=== PATIENT | male | born 1990 | race Caucasian/White ===

== ENCOUNTER 2017-10-01 20:47 | Emergency (ER) | payer OTHER ==
--- NOTE | 2017-10-01 21:01 | ER Report ---
History and Physical Time Seen By MD: 21:01 HPI/[place] CHIEF COMPLAINT: chest pain HISTORY OF PRESENT ILLNESS: This is a 27 year old male. He has had sharp sudden shooting pains off and on for about a week now. Multiple times a day, lasts for a few seconds when it comes on. Seems to start lower anterior chest and extend upwards. No abdominal pain. Has some reflux at times, but does not seem to correlate. No shortness of breath. No nausea or vomiting. Has never had this happen previously. He is under a lot of stress recently. No fevers or chills or cough. Allergies: Coded Allergies: No Known Drug Allergies (Unverified , 10/01/17) Home Meds No Active Prescriptions or Reported Meds Reviewed Nurses Notes: Yes Constitutional Vital Sign - Last 24 Hours 10/01/17 10/01/17 10/01/17 10/01/17 20:55 20:59 21:00 21:02 Temp 98.6 Pulse 70 72 Resp 14 15 B/P (MAP) 131/87 (102) 131/87 124/88 (100) Pulse Ox 98 96 O2 Delivery Room Air 10/01/17 10/01/17 10/01/17 10/01/17 21:17 21:30 21:32 21:47 Pulse 67 68 55 Resp 15 14 B/P (MAP) 114/82 (93) Pulse Ox 92 10/01/17 10/01/17 10/01/17 10/01/17 21:52 22:52 23:00 23:07 Pulse 56 63 59 Resp 19 B/P (MAP) 103/73 (83) Pulse Ox 92 92 10/01/17 10/01/17 10/01/17 10/01/17 23:22 23:30 23:37 23:42 Pulse 51 51 53 B/P (MAP) 112/81 (91) Pulse Ox 92 92 92 10/01/17 10/02/17 10/02/17 10/02/17 23:57 00:00 00:12 00:27 Pulse 53 50 57 B/P (MAP) 109/71 (84) Pulse Ox 95 94 10/02/17 00:30 B/P (MAP) 116/62 (80) Physical Exam General Appearance: The patient is alert. No acute distress. Eyes: Pupils are equal, round. No pallor, injection or icterus. ENT: Mucous membranes are moist. Normal oral mucosa. Posterior oropharynx is normal. Neck: Supple and non tender. Respiratory: Lungs are clear to auscultation. Cardiovascular: Regular rate and rhythm. No murmurs, gallops or rubs. Normal capillary refill. Gastrointestinal: Abdomen is soft and non tender. Nondistended. Normal active bowel sounds. Neurological: Alert and oriented x3. No focal neurologic deficits Skin: Warm and dry. Musculoskeletal: Extremities are nontender. Full range of motion. DIFFERENTIAL DIAGNOSIS: After history and physical exam, differential diagnosis was considered for chest pain including but not limited to myocardial ischemia, pericarditis pulmonary embolus, chest wall pain, pleural inflammation and pulmonary infectious causes. Medical Decision Making Data Points Result Diagram: 10/01/17212410/01/172124 Laboratory Hematology Test 10/01/17 21:25 Red Blood Count 5.06 M/uL (4.00-5.60) Mean Corpuscular Volume 90.8 fL (80.0-96.0) Mean Corpuscular Hemoglobin 31.8 pg (26.0-33.0) Mean Corpuscular Hemoglobin Concent 35.0 g/dL (32.0-36.0) Red Cell Distribution Width 12.3 % (11.5-14.5) Mean Platelet Volume 8.5 fL (7.2-11.1) Neutrophils (%) (Auto) 67.9 % (39.4-72.5) Lymphocytes (%) (Auto) 23.1 % (17.6-49.6) Monocytes (%) (Auto) 6.8 % (4.1-12.4) Eosinophils (%) (Auto) 0.8 % (0.4-6.7) Basophils (%) (Auto) 1.4 % (0.3-1.4) Nucleated RBC Relative Count (auto) 0.1 /100WBC Neutrophils # (Auto) 4.1 K/uL (2.0-7.4) Lymphocytes # (Auto) 1.4 K/uL (1.3-3.6) Monocytes # (Auto) 0.4 K/uL (0.3-1.0) Eosinophils # (Auto) 0.0 K/uL (0.0-0.5) Basophils # (Auto) 0.1 K/uL (0.0-0.1) Nucleated RBC Absolute Count (auto) 0.01 K/uL D-Dimer Quantitative (PE/DVT) < 0.27 ug/ml (0-0.50) Sodium Level 141 mmol/L (137-145) Potassium Level 3.6 mmol/L (3.5-5.0) Chloride Level 102 mmol/L (98-107) Carbon Dioxide Level 27 mmol/L (22-30) Blood Urea Nitrogen 12 mg/dl (9-21) Creatinine 0.90 mg/dl (0.66-1.25) Glomerular Filtration Rate Calc > 60.0 Random Glucose 114 mg/dl (75-110) Calcium Level 9.2 mg/dl (8.4-10.2) Total Bilirubin 0.4 mg/dl (0.2-1.3) Aspartate Amino Transf (AST/SGOT) 16 U/L (0-35) Alanine Aminotransferase (ALT/SGPT) 19 U/L (0-56) Alkaline Phosphatase 87 U/L (0-126) Troponin I < 0.012 ng/ml Total Protein 6.9 gm/dl (6.3-8.2) Albumin 4.0 g/dl (3.5-5.0) Chemistry Test 10/01/17 21:25 White Blood Count 6.1 k/uL (4.5-11.0) Red Blood Count 5.06 M/uL (4.00-5.60) Hemoglobin 16.1 g/dL (14.0-18.0) Hematocrit 45.9 % (42.0-52.0) Mean Corpuscular Volume 90.8 fL (80.0-96.0) Mean Corpuscular Hemoglobin 31.8 pg (26.0-33.0) Mean Corpuscular Hemoglobin Concent 35.0 g/dL (32.0-36.0) Red Cell Distribution Width 12.3 % (11.5-14.5) Platelet Count 216 K/uL (150-450) Mean Platelet Volume 8.5 fL (7.2-11.1) Neutrophils (%) (Auto) 67.9 % (39.4-72.5) Lymphocytes (%) (Auto) 23.1 % (17.6-49.6) Monocytes (%) (Auto) 6.8 % (4.1-12.4) Eosinophils (%) (Auto) 0.8 % (0.4-6.7) Basophils (%) (Auto) 1.4 % (0.3-1.4) Nucleated RBC Relative Count (auto) 0.1 /100WBC Neutrophils # (Auto) 4.1 K/uL (2.0-7.4) Lymphocytes # (Auto) 1.4 K/uL (1.3-3.6) Monocytes # (Auto) 0.4 K/uL (0.3-1.0) Eosinophils # (Auto) 0.0 K/uL (0.0-0.5) Basophils # (Auto) 0.1 K/uL (0.0-0.1) Nucleated RBC Absolute Count (auto) 0.01 K/uL D-Dimer Quantitative (PE/DVT) < 0.27 ug/ml (0-0.50) Glomerular Filtration Rate Calc > 60.0 Calcium Level 9.2 mg/dl (8.4-10.2) Total Bilirubin 0.4 mg/dl (0.2-1.3) Aspartate Amino Transf (AST/SGOT) 16 U/L (0-35) Alanine Aminotransferase (ALT/SGPT) 19 U/L (0-56) Alkaline Phosphatase 87 U/L (0-126) Troponin I < 0.012 ng/ml Total Protein 6.9 gm/dl (6.3-8.2) Albumin 4.0 g/dl (3.5-5.0) Coagulation Test 10/01/17 21:25 D-Dimer Quantitative (PE/DVT) < 0.27 ug/ml EKG/Imaging EKG Interpretation 12 lead EKG: Rhythm: normal sinus rhythm [place]: normal QRS: normal ST segments: normal Imaging CHEST PA AND LATERAL 10/01/2017 9:14 PM. INDICATION: Chest Pain COMPARISON: None. FINDINGS: Lungs are well-expanded. The lungs are clear. No pneumothorax or pleural effusion. Pulmonary vasculature is unremarkable. Heart size is normal. IMPRESSION: Normal. Report Dictated By: Dustin Roblero MD at 10/02/2017 12:01 AM ED Course/Re-evaluation Clinical Indication for ER IV: IV Access ED Course Initial evaluation suggests this is likely inflammatory related pain but we went ahead and did an evaluation looking for other worse causes of pain. These were negative including negative EKG and troponin, negative d-dimer, CBC and CMP negative, an x-ray looking normal. I reviewed all this with the patient. We did talk about inflammatory causes of pain. 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 Decision to Disposition Date: October 02, 2017 Decision to Disposition Time: 00:39 Depart Departure Latest Vital Signs Vital Signs Date Time Temp Pulse Resp B/P (MAP) Pulse Ox O2 Delivery O2 Flow Rate FiO2 10/02/17 00:30 116/62 (80) 10/02/17 00:27 57 10/02/17 00:12 94 10/01/17 21:52 19 10/01/17 20:59 98.6 Room Air Impression: Primary Impression: Non-cardiac chest pain Condition: Improved Disposition: HOME OR SELF-CARE New Scripts No Active Prescriptions or Reported Meds Patient Instructions: Chest Wall Pain (ED) Additional Instructions: We think that your pain is likely due to inflammation, but uncertain of the cause. We would like to have you try taking Ibuprofen 200mg over the counter tablets, take 4 tablets three times a day with food. Consider the possibility of stress playing a part in the pain and begin some stress reduction techniques to see if this will help. Please follow-up with [facility] at [facility] for further evaluation. ANGE ALVAREZ MD October 01, 2017 21:01
[2017-10-01] MEDS ORDERED: NS(*) 0.9% 1000 ML BAG 1,000 ML IV ONE (21:14)
[2017-10-01] MEDS ORDERED: ASPIRIN 81 MG CHEW PO ONE (21:15)
[2017-10-01 21:34] LABS: PLATELET COUNT, AUTOMATED 216 K/uL (150-450)
--- NOTE | 2017-10-01 21:46 | EKG ---
[place] [facility] [place] DREW GALVEZ : [id number] MR: [id number] V: [id number] EXAM DATE: ORDERING PHYSICIAN: ANGE ALVAREZ TECHNOLOGIST: GAVIN Test Reason : CP Blood Pressure : / mmHG Vent. Rate : 062 BPM Atrial Rate : 062 BPM P-R Int : 170 ms QRS Dur : 096 ms QT Int : 392 ms P-R-T Axes : 027 047 027 degrees QTc Int : 397 ms Normal sinus rhythm R wave progression consistent with old ant/sep MS vs lead placement No previous ECGs available Confirmed by LEVAR ESTEVEZ ([id number]) on 10/01/2017 10:43:23 PM Referred By: Confirmed By:LEVAR ESTEVEZ
--- NOTE | 2017-10-02 00:05 | RADIOLOGY IMAGING REPORT ---
FACILITY: [facility] - [place] PATIENT NAME: Adam Yates : 1990 MR: [id number] V: [id number] EXAM DATE: ORDERING PHYSICIAN: ANGE ALVAREZ TECHNOLOGIST: Location: [facility] Patient: Adam Yates : 1990 Visit/Account:[id number] Date of Sevice: 10/01/2017 CHEST PA AND LATERAL 10/01/2017 9:14 PM. INDICATION: Chest Pain COMPARISON: None. FINDINGS: Lungs are well-expanded. The lungs are clear. No pneumothorax or pleural effusion. Pulmo nary vasculature is unremarkable. Heart size is normal. IMPRESSION: Normal. Report Dictated By: Dustin Roblero MD at 10/02/2017 12:01 AM Report E-Signed By: Dustin Roblero MD at 10/02/2017 12:02 AM WSN:[id number]
[2017-10-02 00:44] VITALS: BP 108/67
== END 2017-10-02 00:57 | disposition home or self-care (01) ==
LOC: ER 21:05
DX: R07.89 Other chest pain (principal)
CPT/HCPCS: 71046; 84484; 85025; 85379; 93005; 96360; 99284; J7030; 82040; 82247; 82310; 82374; 82435; 82565; 82947; 84075; 84132; 84155; 84295; 84450; 84460; 84520